=== PATIENT | male | born 1995 | race Two or more races ===

== ENCOUNTER 2017-04-27 00:29 | Emergency (ER) | payer SELFPAY ==
[2017-04-27 00:39] VITALS: RESP 20; O2SAT 99
[2017-04-27] MEDS ORDERED: Naproxen 550 mg Tab PO STA (01:18)
[2017-04-27] MEDS ORDERED: Naproxen 550 mg Tab PO ONE (01:51)
[2017-04-27 01:53] LABS: SQUAMOUS EPITHIAL < 1 /hpf (0-5); URINE BACTERIA RARE (<OCC); URINE BILIRUBIN NEGATIVE (NEGATIVE); URINE BLOOD 1+ (NEGATIVE); URINE CLARITY Clear (Clear); URINE COLOR Straw (YELLOW); URINE GLUCOSE (UA) NORMAL (Normal); URINE LEUKOCYTE ESTERASE 2+ Leu/uL (Negative); URINE NITRATE NEGATIVE (NEGATIVE); URINE PROTEIN NEGATIVE (NEGATIVE); URINE UROBILINOGEN NORMAL mg/dL (0.2-1.0)
[2017-04-27] MEDS ORDERED: Sodium Chloride 0.9% 1,000 ML IV ONE (02:01)
[2017-04-27 03:10] LABS: BASO % 0.3 % (0.0-2.0); EOS # 0.1 K/uL (0.0-0.7); EOS % 1.6 % (0.0-4.0); HEMOGLOBIN 13.8 g/dL (12.0-18.0); LYMPH # 1.6 K/uL (1.0-4.3); LYMPH % 29.5 % (20.0-40.0); MEAN CELL VOLUME 86.9 fL (80.0-94.0); MEAN CORPUSCULAR HEMOGLOBIN 29.5 pg (27.0-31.0); MEAN CORPUSCULAR HGB CONC 33.9 g/dL (33.0-37.0); MEAN PLATELET VOLUME 8.7 fL (7.2-11.7); MONO # 0.5 K/uL (0.0-0.8); MONO % 9.8 % (0.0-10.0); NEUT # 3.2 K/uL (1.8-7.0); NEUT % 58.8 % (50.0-75.0); RBC 4.67 Mil/uL (4.40-5.90); RED CELL DISTRIBUTION WIDTH 14.2 % (11.5-14.5); WHITE BLOOD COUNT 5.4 K/uL (4.8-10.8)
--- NOTE | 2017-04-27 03:12 | CT ---
EXAM: CT Abdomen and Pelvis Without Intravenous Contrast CLINICAL HISTORY: 21 years old, male; Pain; Abdominal pain; Additional info: Right flank pain. Uti. TECHNIQUE: Axial computed tomography images of the abdomen and pelvis without intravenous contrast. All CT scans at this facility use one or more dose reduction techniques, viz.: automated exposure control; ma/kV adjustment per patient size (including targeted exams where dose is matched to indication; i.e. head); or iterative reconstruction technique. Coronal and sagittal reformatted images were created and reviewed. COMPARISON: No relevant prior studies available. FINDINGS: Limitations: Lack of intravenous contrast. Lower thorax: No acute findings. ABDOMEN: Liver: Unremarkable. Gallbladder and bile ducts: No calcified stones. No ductal dilation. Pancreas: Unremarkable. No ductal dilation. Spleen: No splenomegaly. Adrenals: No mass. Kidneys and ureters: Limited evaluation for infection due to lack of intravenous contrast. No renal calculi. No hydronephrosis. Stomach and bowel: No definite mural thickening. No obstruction. Appendix: Normal caliber. No inflammation. PELVIS: Bladder: Unremarkable. No stones. Reproductive: Unremarkable as visualized. ABDOMEN and PELVIS: Intraperitoneal space: No significant fluid collection. No free air. Bones/joints: No acute fracture. Soft tissues: Unremarkable. Vasculature: Unremarkable. No aneurysm. Lymph nodes: No pathologically enlarged lymph nodes. IMPRESSION: 1. No definite CT evidence of urolithiasis.
[2017-04-27 03:27] LABS: ALB/GLOB RATIO 1.1 (1.0-2.1); ALBUMIN 4.2 g/dL (3.5-5.0); ALT/SGPT 19 U/L (21-72); AST/SGOT 35 U/L (17-59); BLOOD UREA NITROGEN 12 mg/dL (9-20); CALCIUM 9.3 mg/dl (8.6-10.4); GFR AFRICAN-AMERICAN > 60; GFR NON-AFRICAN AMERICAN > 60
[2017-04-27] MEDS ORDERED: cefTRIAXone (Rocephin) 250 mg Inj IM STA (04:00)
--- NOTE | 2017-04-27 04:12 | C.PDOC ---
Time Seen by Provider: 04/27/17 01:07 Chief Complaint (Nursing): Male Genitourinary History Per: Patient, Family Onset/Duration Of Symptoms: Days (few) Current Symptoms Are (Timing): Still Present Severity: Moderate Associated Symptoms: Back Pain, Urinary Symptoms Exacerbating Factors: None Alleviating Factors: None Additional History Per: Prior Records Past Medical History Reviewed: Historical Data, Nursing Documentation, Vital Signs Vital Signs: Last Vital Signs Temp 98.5 F 04/27/17 00:33 Pulse 70 04/27/17 00:33 Resp 20 04/27/17 00:33 BP 115/77 04/27/17 00:33 Pulse Ox 99 04/27/17 00:33 - Medical History PMH: No Chronic Diseases Surgical History: No Surg Hx Family History: States: Unknown Family Hx - Social History Hx Tobacco Use: No Hx Alcohol Use: No Hx Substance Use: No - Immunization History Hx Tetanus Toxoid Vaccination: No Hx Influenza Vaccination: No Hx Pneumococcal Vaccination: No Review Of Systems Except As Marked, All Systems Reviewed And Found Negative. Constitutional: Negative for: Fever, Weakness Cardiovascular: Negative for: Chest Pain Respiratory: Negative for: Shortness of Breath Gastrointestinal: Negative for: Vomiting, Abdominal Pain, Diarrhea Genitourinary: Positive for: Dysuria, Penile Discharge. Negative for: Scrotal Pain Musculoskeletal: Positive for: Back Pain (right mid). Negative for: Neck Pain Skin: Negative for: Rash Neurological: Negative for: Weakness, Numbness Physical Exam - Physical Exam Appears: Non-toxic, No Acute Distress Skin: Normal Color, Warm, Dry, No Rash Head: Atraumatic, Normacephalic Eye(s): bilateral: Normal Inspection, PERRL, EOMI Neck: Normal ROM, Supple Cardiovascular: Rhythm Regular Respiratory: Normal Breath Sounds, No Accessory Muscle Use Gastrointestinal/Abdominal: Soft, No Tenderness Back: No CVA Tenderness, No Vertebral Tenderness Male Genital: No Testicular Tenderness, No Testicular Swelling, No Inguinal Tenderness, No Inguinal Swelling, No Scrotal Swelling, Circumcised Extremity: Normal ROM Neurological/Psych: Oriented x3, Normal Motor, Normal Sensation ED Course And Treatment - Laboratory Results Result Diagrams: 04/27/17 03:05 04/27/17 03:05 Interpretation Of Abnormal: UTI, urine C&S sent O2 Sat by Pulse Oximetry: 99 Pulse Ox Interpretation: Normal - CT Scan/US CT abd/pelv. Other Rad Studies (CT/US): Read By Radiologist, Radiology Report Reviewed CT/US Interpretation: IMPRESSION: 1. No definite CT evidence of urolithiasis. Reassessment Condition: Improved Progress - Interventions Interventions:: Observation, Intravenous fluid - Medications Administered Oral: NSAID - Data Reviewed Data Reviewed: Lab, Diagnostic imaging, Old records - Patient Status Patient status: Completely improved - Continuity of Care Discussed patient case with:: Patient, Family-HIPPA compliant, ED Nurse - Patient Plan Patient Plan: Discharge, F/U with PCP Medical Decision Making Medical Decision Making: Will treat for urethritis and UTI. Disposition Counseled Patient/Family Regarding: Studies Performed, Diagnosis, Need For Followup, Rx Given - Disposition Referrals: [facility] at [facility] [Outside] Disposition: HOME/ ROUTINE Disposition Time: 04:12 Condition: IMPROVED Additional Instructions: Drink plenty of fluids. Follow up in the clinic within 1 week for further evaluation and treatment. Return to the ER if you develop fever, vomiting, abdominal pain, worsening of symptoms or if you have any other concerns. Prescriptions: Ciprofloxacin [Cipro] 1 tab PO BID #14 tab Instructions: Urinary Tract Infection, Adult (DC) - Clinical Impression Clinical Impression: UTI (urinary tract infection), Urethritis
[2017-04-27 04:16] VITALS: BP 122/77; PULSE 71; TEMP 98.6
== END 2017-04-27 04:53 | disposition home or self-care (01) ==
LOC: C.ER 00:29
DX: N34.2 Other urethritis (principal)
CPT/HCPCS: 74176; 80053; 81001; 85025; 87040; 87086; 87491; 87591; 96360; 99285; J7040

== ENCOUNTER 2018-03-18 22:08 | Emergency (ER) | payer SELFPAY ==
[2018-03-18 22:32] VITALS: RESP 20; O2SAT 100
--- NOTE | 2018-03-18 23:51 | C.PDOC ---
History Of Present Illness 22 year old male presents to the ER with a complaint of headache for the past 3 hours associated with nausea. Patient has had similar headaches for several years with nausea. He states the headache worsens when he gets up from laying down or stands up from sitting. Patient took ibuprofen with no relief. Denies focal weakness, blurry vision, fever, or neck stiffness. Also reports that for about 3 years, intermittent toothache RIGHT lower molar PMD: No Provider PMHx: Negative Family Hx: Negative Social Hx: Negative Time Seen by Provider: 03/18/18 22:34 Chief Complaint (Nursing): Headache History Per: Patient History/Exam Limitations: no limitations Onset/Duration Of Symptoms: Hrs Current Symptoms Are (Timing): Still Present Preceeding Symptoms: Known Migraine Symptoms Associated Symptoms: Nausea Recent travel outside of the [place]: No Past Medical History Reviewed: Historical Data, Nursing Documentation, Vital Signs Vital Signs: Last Vital Signs Temp 98.3 F 03/18/18 22:28 Pulse 73 03/18/18 22:28 Resp 20 03/18/18 22:28 BP 125/65 03/18/18 22:28 Pulse Ox 100 03/18/18 22:28 Family History: States: Unknown Family Hx - Social History Hx Tobacco Use: No Hx Alcohol Use: No Hx Substance Use: No - Immunization History Hx Tetanus Toxoid Vaccination: No Hx Influenza Vaccination: No Hx Pneumococcal Vaccination: No Review Of Systems Except As Marked, All Systems Reviewed And Found Negative. ENT: Positive for: Mouth Pain Gastrointestinal: Positive for: Nausea Neurological: Positive for: Headache Physical Exam - Physical Exam Appears: Well, No Acute Distress Skin: Warm, Dry Head: Atraumatic, Normacephalic Eye(s): bilateral: PERRL, EOMI Oral Mucosa: Moist Teeth: Other (RIGHT left lower 2nd molar with large cavity) Gingiva: No Abscess Throat: No Erythema, No Exudate Neck: Supple, Other (No meningismus) Lymphatic: No Adenopathy Chest: Symmetrical, No Tenderness Cardiovascular: Rhythm Regular, No Murmur Respiratory: Normal Breath Sounds, No Wheezing Gastrointestinal/Abdominal: Soft, No Tenderness Back: Normal Inspection, No Decreased ROM Extremity: Normal ROM, No Deformity Neurological/Psych: Oriented x3, Normal Cranial Nerves, Normal Motor, Normal Sensation Gait: Steady ED Course And Treatment O2 Sat by Pulse Oximetry: 100 (room air) Pulse Ox Interpretation: Normal Medical Decision Making Medical Decision Making: Impression: Acute on chronic headache Plan: Pepcid, tylenol, zofran On reevaluation patient reports improvement, will discharge home. Disposition - Disposition Referrals: [facility] at [facility] [Outside] (PLEASE FOLLOWUP AT THE CLINIC WITHIN A WEEK FOR FURTHER MANAGEMENT) Disposition: HOME/ ROUTINE Disposition Time: 23:45 Condition: IMPROVED Additional Instructions: FOLLOW UP AT [facility] FOR FURTHER HEADACHE MANAGEMENT YOU CAN ALSO FOLLOWUP AT [facility] FOR [facility]IC The [facility] [address] [place] [address] Dental Clinic: [phone] Prescriptions: RX: Acetaminophen [Tylenol Extra Strength] 1,000 mg PO Q6 PRN #100 tablet PRN Reason: Headache Famotidine [Pepcid] 40 mg PO DAILY PRN #30 tab PRN Reason: reflux Ondansetron ODT [Zofran ODT] 1 odt PO Q6 PRN #20 odt PRN Reason: Nausea/Vomiting Instructions: Headache, Adult (DC), Dental Pain (DC) Forms: [employer] (Sing[place]an) - Clinical Impression Clinical Impression: Headache, Toothache - Scribe Statement The provider has reviewed the documentation as recorded by the Scribe Arsen Puente All medical record entries made by the Scribe were at my direction and personally dictated by me. I have reviewed the chart and agree that the record accurately reflects my personal performance of the history, physical exam, medical decision making, and the department course for this patient. I have also personally directed, reviewed, and agree with the discharge instructions and disposition.
[2018-03-18 23:55] VITALS: BP 122/70; PULSE 80; TEMP 98.1
== END 2018-03-18 23:55 | disposition home or self-care (01) ==
LOC: C.ER 22:08
DX: R51 Headache (principal); K08.89 Other specified disorders of teeth and supporting structures